=== PATIENT | male | born 1990 | race Caucasian/White ===

== ENCOUNTER → 2021-11-19 13:28 | Outpatient (CLI) | payer OTHER, SELFPAY ==
[2021-11-19 14:41] LABS: Liquefaction Semen YES (YES); PH Semen 8 (7-8); Volume Semen 5 (1.0-5.0)
[2021-11-19 14:42] LABS: Sperm Count 57 x10^6/mL (20-150); Sperm Motility 65% % Motile
== END ==
PROVIDERS: Referring Provider Obstetrics & Gynecology; Visit Provider Obstetrics & Gynecology
DX: Z31.69 Encounter for other general counseling and advice on procreation (principal)
CPT/HCPCS: 89320